=== PATIENT | female | born 1985 | race Caucasian/White ===

== ENCOUNTER 2018-04-11 17:50 | Outpatient (CLI) | payer OTHER ==
[~2018-04-11] VITALS: Ht 160 cm; Wt 84.5 kg
[2018-04-11 18:48] VITALS: BP 129/74
[2018-04-11 19:13] LABS: MICROSCOPIC AUTO
== END 2018-04-11 19:30 | disposition home or self-care (01) ==
LOC: LDOP 17:50
PROVIDERS: ATTEND Student in an Organized Health Care Education/Training Program
DX: O26.892 Other specified pregnancy related conditions, second trimester (principal); Z3A.25 25 weeks gestation of pregnancy; H53.8 Other visual disturbances
CPT/HCPCS: 59025; 81001; 99201; G0463

== ENCOUNTER 2018-07-06 18:42 | Inpatient (IN) | payer OTHER ==
[~2018-07-06] VITALS: Ht 162.6 cm; Wt 93.0 kg
[2018-07-06] MEDS ORDERED: OXYTOCIN 30U/ 0.9% NaCL 500ML 500 ML IV PRN (19:35)
[2018-07-06] MEDS ORDERED: OXYTOCIN 30U/ 0.9% NaCL 500ML 500 ML IV ONE (19:35)
[2018-07-06] MEDS ORDERED: D5%-LACTATED RINGERS 1,000 ML IV SCH (19:35)
[2018-07-06] MEDS ORDERED: FENTANYL/BUPIV./NS/PF 250 ML EPIDCONT SCH ×2 (19:40→21:39)
[2018-07-06] MEDS ORDERED: CALCIUM CARBONATE 500 MG TAB.CHEW PO PRN (20:00)
[2018-07-06] MEDS ORDERED: FENTANYL PF 100 MCG/2ML IVPush PRN (20:00)
[2018-07-06] MEDS ORDERED: TERBUTALINE 1 MG/ML, 1ML IVPush PRN (20:00)
[2018-07-06] MEDS ORDERED: ONDANSETRON 2MG/ML, 2ML IVPush PRN (20:00)
[2018-07-06] MEDS ORDERED: LACTATED RINGERS 1,000 ML IVBOLUS PRN ×2 (20:00→22:00)
[2018-07-06] MEDS ORDERED: FENTANYL PF 100 MCG/2ML IV PRN (20:00)
[2018-07-06 20:04] LABS: BASOPHILS # (AUTO) 0.05 x10^3/uL (0-0.1); BASOPHILS % (AUTO) 1 % (0-1); EOSINOPHILS # (AUTO) 0.22 x10^3/uL (0-0.4); EOSINOPHILS % (AUTO) 2 % (1-7); LYMPHOCYTES % (AUTO) 31 % (22-44); MD NO; MEAN CORPUSCULAR HEMOGLOBIN 30.8 pg (27.0-34.8); MEAN CORPUSCULAR VOLUME 90.5 fL (80-100); MEAN PLATELET VOLUME 9.9 fL (7.4-10.4); MONOCYTES # (AUTO) 0.83 x10^3/uL (0.2-0.8); MONOCYTES % (AUTO) 7 % (2-9); NEUTROPHILS # (AUTO) 6.64 x10^3/uL (1.8-6.8); NEUTROPHILS % (AUTO) 60 % (42-75); PLATELET COUNT 211 x10^3/uL (130-400); RED BLOOD COUNT 4.81 x10^6/uL (3.82-5.3); RED CELL DISTRIBUTION WIDTH 13.5 % (9.6-15.2)
[2018-07-06] MEDS: LACTATED RINGERS 1,000 ML IV SCH (20:04)
[2018-07-06] MEDS ORDERED: OXYTOCIN 30U/ 0.9% NaCL 500ML 500 ML ONE (20:25)
[2018-07-06] MEDS ORDERED: NEWBORN KIT ONE (20:25)
[2018-07-06] MEDS ORDERED: LACTATED RINGERS 1,000 ML IV SCH (21:39)
[2018-07-06] MEDS ORDERED: NALOXONE 0.4 MG/ML, 1ML IVPush PRN (22:00)
[2018-07-06] MEDS ORDERED: EPHEDRINE 50 MG/ML, 1ML IVPush PRN (22:00)
[2018-07-07] MEDS: LACTATED RINGERS 1,000 ML IV SCH ×3 (03:35→20:55)
[2018-07-07] MEDS ORDERED: LIDOCAINE 1%, 20ML ONE (07:03)
[2018-07-07] MEDS ORDERED: MISOPROSTOL 200 MCG TABLET ONE (07:04)
[2018-07-07] MEDS ORDERED: IBUPROFEN 600 MG TABLET ONE (09:42)
[2018-07-07] MEDS: IBUPROFEN 600 MG TABLET PO PRN ×2 (09:47→16:35)
[2018-07-07] MEDS ORDERED: PREN1TAB60 PO (09:48)
[2018-07-07] MEDS ORDERED: ONDANSETRON 2MG/ML, 2ML IV PRN (10:00)
[2018-07-07] MEDS ORDERED: METOCLOPRAMIDE 5 MG/ML, 2ML IV PRN (10:00)
[2018-07-07] MEDS ORDERED: CARBOPROST TROMETHAMINE 250 MCG/ML, 1ML IM PRN (10:00)
[2018-07-07] MEDS ORDERED: GLYCERIN ADULT SUPP PR PRN (10:00)
[2018-07-07] MEDS ORDERED: MISOPROSTOL 200 MCG TABLET PR PRN (10:00)
[2018-07-07] MEDS ORDERED: BISACODYL 10 MG SUPP PR PRN (10:00)
[2018-07-07] MEDS ORDERED: IBUPROFEN 800 MG TABLET PO PRN (10:00)
[2018-07-07] MEDS ORDERED: METHYLERGONOVINE 0.2 MG/ML IM PRN (10:00)
[2018-07-07] MEDS ORDERED: ACETAMINOPHEN 325 MG TABLET PO PRN (10:00)
[2018-07-07] MEDS ORDERED: OXYcodone/APAP 5/325MG TABLET PO PRN ×2 (10:00)
[2018-07-07] MEDS ORDERED: OXYTOCIN 30U/ 0.9% NaCL 500ML 500 ML ONE (10:07)
[2018-07-07] MEDS: OXYTOCIN 30U/ 0.9% NaCL 500ML 500 ML IV SCH ×2 (10:08→19:41)
[2018-07-07 11:15] VITALS: BP 127/79
[2018-07-07 12:15] VITALS: BP 124/74
[2018-07-07 16:30] VITALS: BP 125/76
[2018-07-07] MEDS: DOCUSATE 100 MG CAPSULE PO PRN (16:35)
[2018-07-07 17:00] LABS: MEAN CORPUSCULAR HEMOGLOBIN 30.9 pg (27.0-34.8); MEAN CORPUSCULAR HGB CONC 34.2 g/dL (32.4-35.8); MEAN CORPUSCULAR VOLUME 90.4 fL (80-100); MEAN PLATELET VOLUME 9.7 fL (7.4-10.4); PLATELET COUNT 167 x10^3/uL (130-400); RED BLOOD COUNT 4.16 x10^6/uL (3.82-5.3); RED CELL DISTRIBUTION WIDTH 13.6 % (9.6-15.2)
[2018-07-07 17:37] LABS: BASOPHILS # (AUTO) 0.04 x10^3/uL (0-0.1); BASOPHILS % (AUTO) 0 % (0-1); EOSINOPHILS # (AUTO) 0.08 x10^3/uL (0-0.4); EOSINOPHILS % (AUTO) 1 % (1-7); LYMPHOCYTES # (AUTO) 2.68 x10^3/uL (1-3.4); LYMPHOCYTES % (AUTO) 15 % (22-44); MD SCAN; MONOCYTES # (AUTO) 1.12 x10^3/uL (0.2-0.8); MONOCYTES % (AUTO) 6 % (2-9); NEUTROPHILS # (AUTO) 14.11 x10^3/uL (1.8-6.8); NEUTROPHILS % (AUTO) 78 % (42-75)
[2018-07-07 20:55] VITALS: BP 122/78
[2018-07-08] MEDS: IBUPROFEN 600 MG TABLET PO PRN (00:21)
[2018-07-08 00:30] VITALS: BP 109/72
[2018-07-08] MEDS: LACTATED RINGERS 1,000 ML IV SCH ×3 (03:35→19:35)
[2018-07-08 04:20] VITALS: BP 110/69
[2018-07-08] MEDS: OXYTOCIN 30U/ 0.9% NaCL 500ML 500 ML IV SCH ×2 (05:41→12:30)
[2018-07-08 06:35] VITALS: BP 113/78
[2018-07-08] MEDS: PRENATAL VIT/IRON/FA 1 EACH TABLET PO SCH (07:25)
[2018-07-08] MEDS: DOCUSATE 100 MG CAPSULE PO PRN ×2 (07:26→23:36)
[2018-07-08 12:04] VITALS: BP 113/78
[2018-07-08] MEDS ORDERED: IBUP-1222 PO (15:33)
[2018-07-08 19:50] VITALS: BP 126/83
[2018-07-09] MEDS: OXYTOCIN 30U/ 0.9% NaCL 500ML 500 ML IV SCH ×2 (01:41→11:41)
[2018-07-09] MEDS: IBUPROFEN 600 MG TABLET PO PRN ×3 (02:07→14:37)
[2018-07-09] MEDS: LACTATED RINGERS 1,000 ML IV SCH ×2 (03:35→11:35)
[2018-07-09 07:30] VITALS: BP 117/79
[2018-07-09] MEDS: DOCUSATE 100 MG CAPSULE PO PRN (08:19)
[2018-07-09] MEDS: PRENATAL VIT/IRON/FA 1 EACH TABLET PO SCH (08:19)
== END 2018-07-09 16:49 | disposition home or self-care (01) | DRG 807 ==
LOC: LDOP 18:42 → LDIP 19:38 → 2NW 07-07 11:09
PROVIDERS: ADMIT Student in an Organized Health Care Education/Training Program; ATTEND Student in an Organized Health Care Education/Training Program
PROC: 10E0XZZ Delivery of Products of Conception, External Approach (ICD-10-PCS; principal; 2018-07-07)
PROC: 0KQM0ZZ Repair Perineum Muscle, Open Approach (ICD-10-PCS; 2018-07-07)
PROC: 3E0R3BZ Introduction of Anesthetic Agent into Spinal Canal, Percutaneous Approach (ICD-10-PCS; 2018-07-07)
PROC: 00HU33Z Insertion of Infusion Device into Spinal Canal, Percutaneous Approach (ICD-10-PCS; 2018-07-07)
DX: O69.81X0 Labor and delivery complicated by cord around neck, without compression, not applicable or unspecified (principal); Z37.0 Single live birth; Z3A.38 38 weeks gestation of pregnancy; O70.1 Second degree perineal laceration during delivery
CPT/HCPCS: 36415; 85025; 86850; 86900; G0378; J2590; J3010; J7120